=== PATIENT | male | born 1965 | race Caucasian/White ===

== ENCOUNTER 2017-05-04 07:37 | Day surgery (SDC) | payer BC ==
[~2017-05-04] VITALS: Ht 182.9 cm; Wt 96.2 kg
[2017-05-04] VITALS (10 sets, daily range): BP systolic 113–154; BP diastolic 78–98
[~2017-05-04 07:37] MED LIST: HEParin (CATH LAB) 2,000 ML IV ONE; NS IV 1000 ML 1,000 ML ONE
[2017-05-04] MEDS ORDERED: ASPI-983 PO (08:00)
[2017-05-04] MEDS ORDERED: ATOR40TA70 PO (08:00)
[2017-05-04 08:02] LABS: MEAN PLATELET VOLUME 10.2 FL (7.4-10.4); RED BLOOD COUNT 5.57 10^6/uL (4.35-5.85); RED CELL DISTRIBUTION WIDTH 12.8 % (10.0-14.5); WHITE BLOOD COUNT 8.6 10^3/uL (4.3-11.0)
[2017-05-04 08:11] LABS: PROTHROMBIN TIME PATIENT 12.6 SEC (12.2-14.7)
[2017-05-04] MEDS ORDERED: NS IV 1000 ML 1,000 ML IV SCH ×2 (08:15→10:53)
[2017-05-04 08:20] LABS: ALANINE AMINOTRANSFERASE 54 U/L (0-55); ALBUMIN 4.3 GM/DL (3.2-4.5); ANION GAP 10 MMOL/L (5-14); ASPARTATE AMINO TRANSFERASE 28 U/L (5-34); BILIRUBIN,TOTAL 0.8 MG/DL (0.1-1.0); BLOOD UREA NITROGEN 18 MG/DL (7-18); BUN/CREATININE RATIO 16; CALCIUM 8.9 MG/DL (8.5-10.1); CARBON DIOXIDE 20 MMOL/L (21-32); CHLORIDE 112 MMOL/L (98-107); CHOLESTEROL 122 MG/DL (< 200); CREATININE SERUM 1.11 MG/DL (0.60-1.30); DIRECT LDL 64 MG/DL (1-129); GFR ESTIMATED > 60; GLUCOSE 109 MG/DL (70-105); POTASSIUM 4.2 MMOL/L (3.6-5.0); SODIUM 142 MMOL/L (135-145); TOTAL PROTEIN 7.2 GM/DL (6.4-8.2); TRIGLYCERIDES 94 MG/DL (<150); VLDL CHOLESTEROL 19 MG/DL (5-40)
[2017-05-04] MEDS ORDERED: MIDAZOLAM 5 MG/5 ML (VERSED) VIAL ONE ×2 (09:00→10:40)
[2017-05-04] MEDS ORDERED: fentaNYL INJECTION 100 MCG/2 ML AMP ONE ×2 (09:00→10:41)
[2017-05-04] MEDS ORDERED: diphenhydrAMINE 50 MG/ML INJ (BENADRYL) ONE ×2 (09:01→10:41)
--- NOTE | 2017-05-04 09:46 | Cardiac Procedure Note-CS/ASA ---
Pre-Procedure Note Pre-Op Procedure Note H&P Reviewed The H&P was reviewed, patient examined and no changes noted. Date H&P Reviewed: May 04, 2017 Time H&P Reviewed: 09:46 Conscious Sedation Pre-Proced Time Reviewed: 09:46 ASA Class: 2 Airway Mallampati Classification: (eek appropriate class) I. II. III, IV Lungs Heart ASA score ASA 1: a normal healthy patient ASA 2: a patient with a mild systemic disease (mid diabetes, controlled hypertension, obesity ASA 3: a patient with a severe systemic disease that limits activity (angina , COPD, prior Myocardial infarction) ASA 4: a patient with an incapacitating disease that is a constant threat to life (CHF, renal failure) ASA 5: a moribund patient not expected to survive 24 hrs. (ruptured aneurysm) ASA 6: a declared brain patient whose organs are being harvested. For emergent operations, add the letter E after the classification Grade 2 Sedation Plan: Analgesia, Amnesia, Plan communicated to team members, Discussed options with patient/fam, Discussed risks with patient/fam Note The patient is an appropriate candidate to undergo the planned procedure, sedation, and anesthesia. The patient immediately re-assessed prior to indication. ELIOT ROTH MD FACP FAC CCDS May 04, 2017 09:46
--- NOTE | 2017-05-04 10:55 | Discharge Inst-Cardiology ---
Discharge Inst-Cardiac Discharge Medications Continued Medications: Aspirin (Aspirin EC) 81 Mg Tablet.dr 81 MG PO DAILY, TAB Atorvastatin Calcium (Atorvastatin Calcium) 40 Mg Tablet 40 MG PO DAILY, TAB Orders-Post D/C & Referrals Pneu Vac Indicated: Yes ELIOT ROTH MD FACP FACC CCDS May 04, 2017 10:55
--- NOTE | 2017-05-04 10:56 | Discharge Inst-Post CATH ---
Discharge Inst-CATH Post Cardiac Cath D/C Inst Follow Up/Plan F/u with Dr Bailey in 2 weeks CARDIAC CATH DISCHARGE INSTRUCTIONS *Hold Metformin for 48 hours post heart cath. ACTIVITY * Go Home directly and rest. * Limit activity of the leg (or wrist if it was used) for 7 days including aerobics, swimming, jogging, bicycling, etc. * Restrict stair-climbing for 7 days if possible, if not, climb up with your non -cath leg, then bring together on the same step. * Avoid lifting, pushing, pulling or excessive movement of the affected extremity for 7 days. * Customary sexual activity may be resumed after 2 days-use caution not to use a position that strains or causes pain to the affected extremity. * No driving for 24 hours. * NO SMOKING. * Avoid straining for bowel movements for 7 days. * Gentle walking on level ground is allowed. * Returning to work will depend on the type of procedure and the results. Your doctor will discuss this with you. CALL YOUR DOCTOR FOR ANY OF THE FOLLOWING: *If bleeding from the puncture site occurs- Apply gentle pressure to site with clean cloth and call your doctor or EMS. * If a knot or lump forms under the skin, increases in size, or causes pain. * If bruising appears to be worsening or moving further down your leg instead of disappearing. * Temperature above 101 F. CARE OF YOUR GROIN INCISION; * Bruising or purple discoloration of the skin near the puncture site is common. * You may shower only, no bathtub bathing for 5 days. Be careful to avoid slipping as your leg may feel stiff. * If a closure device was used on your femoral artery, please see the attached guide regarding care of the device and your leg. * REMOVE the dressing from your groin the next day after your procedure in the shower. CARE OF YOUR WRIST INCISION; * Bruising or purple discoloration of the skin near the puncture site is common. * You may shower. * DO NOT submerge wrist. * Remove dressing in 24 hours. ELIOT BAILEY MD [facility] CCDS May 04, 2017 10:56
[2017-05-04] MEDS ORDERED: PATIENT MAY USE OWN MEDS, ALL PO SCH (11:00)
--- NOTE | 2017-05-09 12:43 | CARDIAC CATHETERIZATION ---
DATE OF SERVICE: 05/04/2017 The patient is a 51-year-old man with a history of coronary artery disease and coronary artery bypass surgery who has been experiencing symptoms suggestive of recurrent angina. Cardiac catheterization was carried out today after having obtained an informed consent, PROCEDURE: He was brought to the cardiac catheterization laboratory in a fasting state. Right groin was prepared and draped in the usual sterile fashion. Lidocaine 1% local anesthesia. Modified Seldinger technique was used to advance a 5-Serbian sheath into the right femoral artery. A 5-Serbian JL3.5 catheter was used for left coronary angiography. A 5-Serbian JR4 catheter was used for right coronary angiography. A 5-Serbian JR4 catheter and a 5-Serbian ELLEN catheter were used for angiography of the left internal mammary artery graft to the left anterior descending artery. A 5-Serbian pigtail catheter was used for left heart catheterization and left ventricular angiography. He tolerated the procedure well. At the end of the procedure, following sheath removal, a Mynx was used to achieve hemostasis. Angiography of the right femoral artery with catheter out through the sheath at the beginning of the procedure. HEMODYNAMICS: Left ventricular end-diastolic pressure following coronary angiography was 7 mmHg. There was no significant pressure gradient on pullback across the aortic valve. Ascending aortic pressure was 111/68 with a mean of 86 mmHg. CORONARY ANGIOGRAPHY: Left main coronary artery is free of significant disease. Left anterior descending artery has 99-100% proximal stenosis. Left circumflex artery does not exhibit significant disease. Right coronary artery is dominant and does not exhibit significant disease. GRAFT ANGIOGRAPHY: Left internal mammary artery graft to left anterior descending artery is widely patent and free of significant disease. There is good runoff distally and also proximal to the insertion of the graft. LEFT VENTRICULAR ANGIOGRAPHY: Left ventricular angiography was carried out in the right anterior oblique projection. Global left ventricular systolic function is at the lower limit of normal. Left ventricular ejection fraction approximately 50%. There appears to be mild apical hypokinesis. CONCLUSIONS: 1. Coronary artery disease primarily consisting of 99 to 100% proximal stenosis, left anterior descending artery. The distal left anterior descending artery is protected with a widely patent left internal mammary artery graft. 2. The rest of the coronary vessels do not exhibit significant obstructive disease. 3. Normal left ventricular end-diastolic pressure. 4. Global left ventricular systolic function at the lower limit of normal with an ejection fraction of 50% and with mild apical hypokinesis. DISCUSSION AND RECOMMENDATIONS: Based on results of the study, it appears appropriate to continue a conservative approach. Risk factor modification was reviewed. Outpatient followup is advised. Job ID: [id number] DocumentID: [id number] Dictated Date: 05/04/2017 10:47:04 Clerk Stenographer Date: 05/09/2017 12:42:51 Dictated By: ELIOT ROTH MD, MA, FACP, FACC,
== END 2017-05-04 14:15 | disposition home or self-care (01) ==
LOC: CATH 07:37 → SURG 10:57 → ENPENDDIS 14:00 → CATH 14:15
PROVIDERS: ATTEND Nurse Practitioner Family
DX: R07.89 Other chest pain (principal); I25.10 Atherosclerotic heart disease of native coronary artery without angina pectoris; E78.5 Hyperlipidemia, unspecified; R73.09 Other abnormal glucose; Z95.1 Presence of aortocoronary bypass graft; Z79.899 Other long term (current) drug therapy
CPT/HCPCS: 36415; 36430; 80053; 80061; 85027; 85610; 85730; 87081; 93459

== ENCOUNTER → 2017-05-08 | Outpatient (CLI) | payer BC ==
[~2017-05-08] MED LIST changes: +ASPI-983 PO; +ATOR40TA70 PO; -HEParin (CATH LAB) 2,000 ML IV ONE; -NS IV 1000 ML 1,000 ML ONE
--- NOTE | 2017-05-08 10:44 | Diagnostic Imaging Report ---
PROCEDURE: CT chest without contrast. TECHNIQUE: Multiple contiguous axial images were obtained through the chest without the use of intravenous contrast. Indication: Followup pulmonary nodules. Comparison: 05/06/2016, 10/23/2015, and 07/01/2015. Discussion: 4 mm nodule within the right upper lobe, 6 mm nodule within the right middle lobe, and 3 mm nodule within the right lower lobe appear stable. No new nodule identified. No abnormal focal consolidation. Partially calcified lymph nodes within the right hilum are stable, benign. Per the most recent revised Fleischner criteria, findings are considered benign and no further followup is required. Median sternotomy is again noted. Stable normal heart size. No mediastinal, hilar, or axillary pathologically enlarged lymph nodes identified. The thoracic aorta is normal in caliber and configuration. Fatty infiltration of the liver is noted. The visualized upper abdomen is unremarkable otherwise. No acute osseous abnormality identified. Impression: 1. Benign-appearing nodules within the right lung appear stable. No further followup is required per the most recent Fleischner criteria. 2. Fatty infiltration of the liver. FLEISCHNER CRITERIA, 2017: Solid nodules: Solitary nodule size: <6 mm * low risk patients: no follow-up needed * high risk patients: optional CT at 12 months Solitary nodule size: 6-8 mm * low risk patients: follow-up at 6-12 months, then consider further follow-up at 18-24 months * high risk patients: initial follow-up CT at 6-12 months and then at 18-24 months if no change Solitary nodule size: >8 mm * either low or high risk patients * consider follow-up CT at 3 months, and/or CT-PET, and/or biopsy Multiple nodules size: <6 mm * low risk patients: no routine follow-up * high risk patients: optional CT at 12 months Multiple nodules size: 6-8 mm * low risk patients: follow-up at 3-6 months, then consider further follow-up at 18-24 months * high risk patients: follow-up at 3-6 months, then at 18-24 months if no change Multiple nodules size: >8 mm * low risk patients: follow-up at 3-6 months, then consider further follow-up at 18-24 months * high risk patients: follow-up at 3-6 months, then at 18-24 months if no change Note: newly detected indeterminate nodule in persons 35 years of age or older. * low risk patients: minimal or absent history of smoking and or other known risk factors * high risk patients: history of smoking or of other known risk factors (e.g. first degree relative with lung cancer, or exposure to asbestos, radon, uranium) * if a nodule up to 8 mm is partly solid or is ground glass further follow-up is required after 24 months to exclude possible slow growing adenocarcinoma (YOGESH) Dictated by: Dictated on workstation # [id number]
== END ==
LOC: RAD 10:08
PROVIDERS: ATTEND Internal Medicine Critical Care Medicine
DX: R91.8 Other nonspecific abnormal finding of lung field (principal); K76.0 Fatty (change of) liver, not elsewhere classified; R06.00 Dyspnea, unspecified
CPT/HCPCS: 71250

== ENCOUNTER 2019-07-02 10:21 | Emergency (ER) | payer BC, OTHER ==
[~2019-07-02] VITALS: Ht 185 cm; Wt 90.0 kg
[2019-07-02 10:37] LABS: BASOPHILS # (AUTO) 0.1 10^3/uL (0.0-0.1); BASOPHILS % (AUTO) 1 % (0-10); EOSINOPHILS # (AUTO) 0.2 10^3/uL (0.0-0.3); EOSINOPHILS % (AUTO) 2 % (0-10); HEMATOCRIT 50 % (40-54); HEMOGLOBIN 17.4 G/DL (13.3-17.7); LYMPHOCYTES # (AUTO) 1.8 X 10^3 (1.0-4.0); LYMPHOCYTES % (AUTO) 19 % (12-44); MEAN CORPUSCULAR HEMOGLOBIN 30 PG (25-34); MEAN CORPUSCULAR HGB CONC 35 G/DL (32-36); MEAN CORPUSCULAR VOLUME 86 FL (80-99); MEAN PLATELET VOLUME 9.7 FL (7.4-10.4); MONOCYTES # (AUTO) 0.9 X 10^3 (0.0-1.0); MONOCYTES % (AUTO) 10 % (0-12); NEUTROPHILS # (AUTO) 6.6 X 10^3 (1.8-7.8); NEUTROPHILS % (AUTO) 69 % (42-75); PLATELET COUNT 232 10^3/uL (130-400); RED CELL DISTRIBUTION WIDTH 12.8 % (10.0-14.5); WHITE BLOOD COUNT 9.6 10^3/uL (4.3-11.0)
[2019-07-02] MEDS ORDERED: NS 100 ML (IVPB) BAG IV ONE (10:45)
[2019-07-02] MEDS ORDERED: IOHEXOL 350 MG/ML 100 ML (OMNIPAQUE 350) VIAL IV ONE (10:45)
[2019-07-02] MEDS ORDERED: HOLD METFORMIN - RECEIVED CONTRAST 20 ML VIAL IV SCH (10:45)
[2019-07-02 10:46] LABS: FIBRIN DEGRADATION PRODUCTS <= 0.27 UG/ML (0.00-0.49); INR 0.9 (0.8-1.4); PARTIAL THROMBOPLASTIN TIME 28 SEC (24-35); PROTHROMBIN TIME PATIENT 12.5 SEC (12.2-14.7)
--- NOTE | 2019-07-02 10:47 | NUR ---
BACK FROM CT.
[2019-07-02 10:49] LABS: ALANINE AMINOTRANSFERASE 55 U/L (0-55); ALBUMIN 4.9 GM/DL (3.2-4.5); ALKALINE PHOSPHATASE 115 U/L (40-136); BILIRUBIN,TOTAL 0.5 MG/DL (0.1-1.0); BUN/CREATININE RATIO 16; CARBON DIOXIDE 25 MMOL/L (21-32); CHLORIDE 110 MMOL/L (98-107); CREATININE SERUM 1.35 MG/DL (0.60-1.30); GFR ESTIMATED 55; GLUCOSE 106 MG/DL (70-105); POTASSIUM 4.3 MMOL/L (3.6-5.0); SODIUM 143 MMOL/L (135-145); TOTAL PROTEIN 8.1 GM/DL (6.4-8.2)
--- NOTE | 2019-07-02 10:53 | Diagnostic Imaging Report ---
INDICATION: Stroke symptoms Noncontrast brain CT is performed. There are no extra-axial fluid collections. No intracranial hemorrhage. No intracranial mass or mass effect. No midline shift. The ventricles are normal in size and position. There are no focal parenchymal abnormalities in the brain. Calvarial windows were unremarkable. There is questionable hyperdensity in one of the M2 branches in the left sylvian fissure, vessel occlusion is not excluded. Correlate with clinical symptoms, consider CTA if warranted. IMPRESSION: No acute intracranial hemorrhage or focal intraparenchymal abnormality. Questionable area of hyperdensity in the left sylvian fissure, a left M2 branch occlusion is not excluded. Correlate with clinical symptoms, consider CTA if clinically warranted. Dictated by: Dictated on workstation # [id number]
--- NOTE | 2019-07-02 11:15 | Diagnostic Imaging Report ---
PROCEDURE: CT angiography of the head and CT angiography of the neck with and without contrast. TECHNIQUE: Contiguous noncontrast images were obtained from the skull base through the vertex. After intravenous contrast administration, helical CT angiography of the neck was performed. Source data was reformatted into 3D MIP projections. Delayed post contrast acquisition was also obtained. Auto Exposure Controls were utilized during the CT exam to meet ALARA standards for radiation dose reduction. INDICATION: Facial droop and stroke. FINDINGS: Delayed postcontrast images are without evidence of abnormal enhancing lesion. CT angiographic portion of the exam demonstrates there to be a three-vessel branching pattern of the aortic arch. Both common carotid arteries are widely patent. Carotid bifurcations are unremarkable. Internal carotid arteries show some calcified plaque at the carotid siphons. There is normal perfusion to the middle cerebral artery territories bilaterally. No filling defects within M1 or M2 segments is seen. Bilateral anterior cerebral as well as bilateral posterior cerebral arteries appear to be patent. No large branch occlusion is seen. The vertebral arteries are codominant. No stenosis is seen. Note is made of an area of heterogeneous enhancement in the region of the left oral pharynx. This area measures 1.7 cm transverse x 1.3 cm AP x approximately 2.0 cm cephalocaudal. This is in the region of the left tonsillar pillar. No cervical lymphadenopathy is seen. IMPRESSION: 1. Unremarkable CT angiogram of the head and neck. There is no evidence of large branch occlusion or intracranial thromboembolism. 2. Questionable mass in the region of the left tonsillar pillar. A dedicated MRI soft tissue neck with and without contrast would be recommended for better characterization on a nonemergent basis. Results were discussed with Dr. Tejeda prior to this dictation. Dictated by: Dictated on workstation # [id number]
[2019-07-02 11:24] LABS: BILIRUBIN,URINE NEGATIVE (NEGATIVE); CLARITY,URINE CLEAR; COLOR,URINE YELLOW; GLUCOSE, URINE (UA) NEGATIVE (NEGATIVE); KETONES,URINE NEGATIVE (NEGATIVE); LEUKOCYTE ESTERASE ,URINE NEGATIVE (NEGATIVE); NITRITE,URINE NEGATIVE (NEGATIVE); PH,URINE 6.5 (5-9); PROTEIN,URINE 1+ (NEGATIVE); UROBILINOGEN,URINE NORMAL (NORMAL)
[2019-07-02 11:31] LABS: BACTERIA,URINE NEGATIVE /HPF; SQUAMOUS EPITHELIAL CELL,UR RARE /HPF
[2019-07-02] MEDS ORDERED: ACYCLOVIR 400 MG TABLET (ZOVIRAX) PO ONE (11:45)
[2019-07-02] MEDS ORDERED: cefTRIAXone FOR IV USE 1,000 MG in WATER (STERILE) FOR INJECTION 10 ML IV ONE (11:45)
[2019-07-02] MEDS ORDERED: predniSONE 20 MG TAB PO ONE (11:45)
[2019-07-02] MEDS ORDERED: AMOX500C2 PO (11:48)
[2019-07-02] MEDS ORDERED: PRD20T PO (11:48)
[2019-07-02] MEDS ORDERED: ACYC400T PO (11:48)
--- NOTE | 2019-07-02 11:51 | ED Neurological Problem ---
General Chief Complaint: Neuro-Stroke Like Symptoms Stated Complaint: STROKE LIKE SYMPTOMS Nursing Triage Note: ARRIVED VIA WC VIA POV. 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 PT STATES HE HAS HAD SOME DIZZINESS FOR THE LAST TWO WEEKS. Nursing Sepsis Screen: No Definite Risk Source: patient Exam Limitations: no limitations History of Present Illness Date Seen by Provider: Jul 02, 2019 Time Seen by Provider: 10:21 Initial Comments This 53-year-old gentleman presents to the emergency room by private vehicle with complaints of left-sided facial droop. Last known well time was approximately one hour prior to arrival. He noticed a tendency to drool and numbness and weakness of the left face while driving. He thought he was having a stroke and decided to come directly to the emergency room. He briefly had some tingling in his left arm but denies any extremity weakness. He denies use of anticoagulants. Fingerstick blood sugar was 44 but was later discovered to be a diluted specimen. He is alert and oriented on arrival. NIH stroke score is 2 for the facial weakness. Stroke activation was paged upon arrival. Patient also complains of some congestion, sore throat and dizziness over the past 1-2 weeks. Allergies and Home Medications Allergies Coded Allergies: No Known Drug Allergies (Unverified , 08/04/15) Home Medications Acyclovir 400 Mg Tablet, 400 MG PO 5XD Prescribed by: DARINEL JOY on 07/02/19 1148 Amoxicillin 500 Mg Capsule, 1,000 MG PO BID Prescribed by: DARINEL JOY on 07/02/19 1148 Aspirin 81 Mg Tablet.dr, 81 MG PO DAILY, (Reported) Atorvastatin Calcium 40 Mg Tablet, 40 MG PO DAILY, (Reported) Prednisone 20 Mg Tab, 60 MG PO DAILY Start morning of 07/03/19 Prescribed by: DARINEL JOY on 07/02/19 1148 Patient Home Medication List Home Medication List Reviewed: Yes Review of Systems Review of Systems Constitutional: no symptoms reported Eyes: No Symptoms Reported Ears, Nose, Mouth, Throat: see HPI Respiratory: no symptoms reported Cardiovascular: no symptoms reported Gastrointestinal: no symptoms reported Genitourinary: no symptoms reported Musculoskeletal: no symptoms reported Skin: no symptoms reported Psychiatric/Neurological: See HPI Endocrine: No Symptoms Reported Hematologic/Lymphatic: No Symptoms Reported Past Hjtpisc-Vaxwsj-Gwvipp Hx Past Med/Social Hx: Reviewed Nursing Past Med/Soc Hx Patient Social History Recent Foreign Travel: No Contact w/Someone Who Travel: No Recent Infectious Disease Expo: No Immunizations Up To Date Tetanus Booster (TDap): Less than 5yrs PED Vaccines UTD: Yes Date of Influenza Vaccine: Jul 21, 2015 Past Medical History Surgeries: Yes (OPEN HEART) CABG Respiratory: No Cardiac: Yes (OPEN HEART) Coronary Artery Disease Neurological: No Reproductive Disorders: No Gastrointestinal: No Musculoskeletal: No Endocrine: No HEENT: No Cancer: No Psychosocial: No Integumentary: No Blood Disorders: No Adverse Reaction/Blood Tranf: No Family Medical History Cardiovascular disease 19 MOTHER, Onset:60 years & older Myocardial infarction 19 FATHER, Onset:45 Physical Exam Vital Signs Vital Signs - First Documented 07/02/19 10:21 Temp 37.0 Pulse 71 Resp 16 B/P (MAP) 138/103 (115) Pulse Ox 96 O2 Delivery Room Air Capillary Refill : Less Than 3 Seconds Height, Weight, BMI Height: 6'0.00" Weight: 212lbs. 0.0oz. 96.680981vv; 26.00 BMI Method: General Appearance: WD/WN, no apparent distress HEENT: PERRL/EOMI, other (left tonsillar edema and erythema with patchy white spots in the crypts and again ulcer superiorly) Neck: non-tender, full range of motion, supple, normal inspection Respiratory: lungs clear, normal breath sounds, no respiratory distress, no accessory muscle use Cardiovascular: regular rate, rhythm, no edema, no murmur Gastrointestinal: non tender, soft Extremities: normal inspection, no pedal edema Neurologic/Psychiatric: alert, normal mood/affect, oriented x 3 Crainal Nerves: normal hearing, normal speech, PERRL, other (left-sided facial droop involving the mouth, cheek, and eyelid. There appears to be some early vomit of the forehead as well.) Motor/Sensory: no sensory deficit, no pronator drift Skin: normal color, warm/dry Stroke NIH Stroke Scale Assessment Level of Consciousness: 0=Alert (0), Level of Consciousness-Questions: 0=Answers both month/age (0), LOC Commands: 0=Performs both tasks (0), Visual Raya: 0=No visual loss (0), Facial Movement (Facial Paresis): 2=Partial paralysis (2), Motor Function-Arms Right: 0=No drift (0), Motor Function-Arms Left: 0=No drift (0), Motor Function-Legs Right: 0=No drift (0), Motor Function-Legs Left: 0=No drift (0), Limb Ataxia: 0=Absent (0), Sensory: 0=Normal:no loss (0), Best Language: 0=No aphasia (0), Dysarthria: 0=Normal (0), Extinction & Inattention: 0=No abnormality (0), Total: 2 Progress/Results/Core Measures Results/Orders Lab Results Laboratory Tests Test 07/02/19 10:23 07/02/19 10:31 07/02/19 11:15 07/02/19 11:30 Range/Units White Blood Count 9.6 4.3-11.0 10^3/uL Red Blood Count 5.80 4.35-5.85 10^6/uL Hemoglobin 17.4 13.3-17.7 G/DL Hematocrit 50 40-54 % Mean Corpuscular Volume 86 80-99 FL Mean Corpuscular Hemoglobin 30 25-34 PG Mean Corpuscular Hemoglobin Concent 35 32-36 G/DL Red Cell Distribution Width 12.8 10.0-14.5 % Platelet Count 232 130-400 10^3/uL Mean Platelet Volume 9.7 7.4-10.4 FL Neutrophils (%) (Auto) 69 42-75 % Lymphocytes (%) (Auto) 19 12-44 % Monocytes (%) (Auto) 10 0-12 % Eosinophils (%) (Auto) 2 0-10 % Basophils (%) (Auto) 1 0-10 % Neutrophils # (Auto) 6.6 1.8-7.8 X 10^3 Lymphocytes # (Auto) 1.8 1.0-4.0 X 10^3 Monocytes # (Auto) 0.9 0.0-1.0 X 10^3 Eosinophils # (Auto) 0.2 0.0-0.3 10^3/uL Basophils # (Auto) 0.1 0.0-0.1 10^3/uL Prothrombin Time 12.5 12.2-14.7 SEC INR Comment 0.9 0.8-1.4 Activated Partial Thromboplast Time 28 24-35 SEC D-Dimer <= 0.27 0.00-0.49 UG/ML Sodium Level 143 135-145 MMOL/L Potassium Level 4.3 3.6-5.0 MMOL/L Chloride Level 110 H 98-107 MMOL/L Carbon Dioxide Level 25 21-32 MMOL/L Anion Gap 8 5-14 MMOL/L Blood Urea Nitrogen 22 H 7-18 MG/DL Creatinine 1.35 H 0.60-1.30 MG/DL Estimat Glomerular Filtration Rate 55 BUN/Creatinine Ratio 16 Glucose Level 106 H 70-105 MG/DL Calcium Level 10.0 8.5-10.1 MG/DL Corrected Calcium 8.5-10.1 MG/DL Total Bilirubin 0.5 0.1-1.0 MG/DL Aspartate Amino Transf (AST/SGOT) 30 5-34 U/L Alanine Aminotransferase (ALT/SGPT) 55 0-55 U/L Alkaline Phosphatase 115 40-136 U/L Troponin I < 0.028 <0.028 NG/ML Total Protein 8.1 6.4-8.2 GM/DL Albumin 4.9 H 3.2-4.5 GM/DL Glucometer 44 *L 70-110 MG/DL Urine Color YELLOW Urine Clarity CLEAR Urine pH 6.5 5-9 Urine Specific [place] 1.010 L 1.016-1.022 Urine Protein 1+ H NEGATIVE Urine Glucose (UA) NEGATIVE NEGATIVE Urine Ketones NEGATIVE NEGATIVE Urine Nitrite NEGATIVE NEGATIVE Urine Bilirubin NEGATIVE NEGATIVE Urine Urobilinogen NORMAL NORMAL MG/DL Urine Leukocyte Esterase NEGATIVE NEGATIVE Urine RBC (Auto) NEGATIVE NEGATIVE Urine RBC NONE /HPF Urine WBC NONE /HPF Urine Squamous Epithelial Cells RARE /HPF Urine Crystals NONE /LPF Urine Bacteria NEGATIVE /HPF Urine Casts NONE /LPF Urine Mucus NEGATIVE /LPF Urine Culture Indicated NO Group A Streptococcus Screen NEGATIVE NEGATIVE My Orders Orders - DARINEL TEJEDA MD Cbc With Automated Diff (07/02/19 10:30) Protime With Inr (07/02/19 10:30) Partial Thromboplastin Time (07/02/19 10:30) Comprehensive Metabolic Panel (07/02/19 10:30) Fibrin Degradation Products (07/02/19 10:30) Troponin I (07/02/19 10:30) Ua Culture If Indicated (07/02/19 10:30) Chest 1 View, Ap/Pa Only (07/02/19 10:30) Ekg Tracing (07/02/19 10:30) Accucheck Stat ONCE (07/02/19 10:30) Ed Iv/Invasive Line Start (07/02/19 10:30) Ed Iv/Invasive Line Start (07/02/19 10:30) Vital Signs Stroke Patient Q15M (07/02/19 10:30) Ct Head Wo-R/O Stroke (07/02/19 10:30) O2 (07/02/19 10:30) Intake & Output 06,14,22 (07/02/19 10:30) Monitor-Rhythm Ecg Trace Only (07/02/19 10:30) Dysphagia Screening Tool (07/02/19 10:30) Post Thrombolytic Adminstratio (07/02/19 10:30) Ct Angio Head/Neck (07/02/19 10:30) Iohexol Injection (Omnipaque 350 Mg/Ml 1 (07/02/19 10:45) Received Contrast (Hold Metformin- Contr (07/02/19 10:45) Ns (Ivpb) (Sodium Chloride 0.9% Ivpb Bag (07/02/19 10:45) Ceftriaxone For Iv Use (Rocephin For I (07/02/19 11:45) Prednisone Tablet (Deltasone Tablet) (07/02/19 11:45) Acyclovir Capsule/Tablet (Zovirax Caps (07/02/19 11:45) Rapid Strep A Screen (07/02/19 11:52) Medications Given in ED Current Medications Medications Dose Ordered Sig/Ruddy Route Start Time Stop Time Status Last Admin Dose Admin Acyclovir 400 mg ONCE ONCE PO 07/02/19 11:45 07/02/19 11:46 DC 07/02/19 12:17 400 MG Ceftriaxone Sodium 1000 mg/ Sterile Water 10 ml @ 200 mls/hr ONCE ONCE IV 07/02/19 11:45 07/02/19 11:47 DC 07/02/19 12:18 200 MLS/HR Iohexol 75 ml ONCE ONCE IV 07/02/19 10:45 07/02/19 10:46 DC 07/02/19 10:41 75 ML Prednisone 60 mg ONCE ONCE PO 07/02/19 11:45 07/02/19 11:46 DC 07/02/19 12:17 60 MG Sodium Chloride 100 ml ONCE ONCE IV 07/02/19 10:45 07/02/19 10:46 DC 07/02/19 10:42 80 ML Vital Signs/I&O 07/02/19 07/02/19 10:21 12:35 Temp 37.0 37.0 Pulse 71 69 Resp 16 16 B/P (MAP) 138/103 (115) 116/88 (115) Pulse Ox 96 94 O2 Delivery Room Air Room Air Blood Pressure Mean: 115 FSBG Bedside Testing Finger Stick Blood Glucose: 44 Progress Progress Note : Progress Note Although there appeared to be some subtle left forehead weakness to suggest Paz's palsy, this finding was not obvious enough to rule out ischemic stroke. Stroke activation was paged. Patient was taken to CT. No acute findings or present to account for patient's symptoms. Workup was otherwise unremarkable. Fingerstick blood sugar of 44 was found to be on a diluted sample. Blood sugar on blood draw was normal. CT angiogram of the head and neck was performed due to the complaint of dizziness associated with these neurologic findings. There is an incidental finding of possible inflammatory changes around the left tonsil. On exam this correlated with erythema, exudate, an ulcerative lesion of the left tonsil. For this reason patient was given Rocephin. Patient's left forehead weakness seemed to progress throughout the course of his ER stay making Paz's palsy a more plausible explanation for his symptoms. Case was discussed with Dr. Shannon, stroke neurologist at [facility]. He agrees that the workup, exam, and history is strongly suggestive of Paz's palsy. Patient was treated accordingly with prednisone and acyclovir. See discharge instructions. Initial ECG Impression Date: Jul 02, 2019 Initial ECG Impression Time: 10:51 Initial ECG Rate: 65 Initial ECG Rhythm: Normal Sinus Comment Sinus rhythm with no ST elevation or depression. Automated read states nonspecific intraventricular conduction delay. Left LVH by automated read. Diagnostic Imaging Diagonstic Imaging: CT Plain Films/CT/US/NM/MRI: head Comments CT head viewed by me. Discussed with the radiologist and report reviewed. See report below: NAME: JOHN CHARLTON [facility] REC#: [id number] PT STATUS: [facility] ER : 1965 PHYSICIAN: DARINEL TEJEDA MD ADMIT DATE: 07/02/19/ER Signed Date of Exam: 07/02/19 CT HEAD WO-R/O STROKE INDICATION: Stroke symptoms Noncontrast brain CT is performed. There are no extra-axial fluid collections. No intracranial hemorrhage. No intracranial mass or mass effect. No midline shift. The ventricles are normal in size and position. There are no focal parenchymal abnormalities in the brain. Calvarial windows were unremarkable. There is questionable hyperdensity in one of the M2 branches in the left sylvian fissure, vessel occlusion is not excluded. Correlate with clinical symptoms, consider CTA if warranted. IMPRESSION: No acute intracranial hemorrhage or focal intraparenchymal abnormality. Questionable area of hyperdensity in the left sylvian fissure, a left M2 branch occlusion is not excluded. Correlate with clinical symptoms, consider CTA if clinically warranted. Dictated by: Dictated on workstation # [id number] Dict: 07/02/19 1043 Trans: 07/02/19 1523 Interpreted by: ROGER DE LEON MD Electronically signed by: ROGER DE LEON MD 07/02/19 1523 Diagonstic Imaging: Xray Plain Films/CT/US/NM/MRI: chest Comments NAME: JOHN CHARLTON [facility] REC#: [id number] PT STATUS: [facility] ER : 1965 PHYSICIAN: DARINEL TEJEDA MD ADMIT DATE: 07/02/19/ER Signed Date of Exam: 07/02/19 CHEST 1 VIEW, AP/PA ONLY Indication: Left-sided facial drooping and tingling. Findings: The lungs are clear. The heart size upper limits but stable from prior. Sternal wires midline. No failure, effusion or pneumothorax. Impression: No acute appearing abnormality. Dictated by: Dictated on workstation # [id number] Dict: 07/02/19 1140 Trans: 07/02/19 165 Interpreted by: ANGELICA PEREZ Electronically signed by: ANGELICA PEREZ 07/02/19 1655 Diagonstic Imaging: CT Plain Films/CT/US/NM/MRI: other (angiogram head and neck) Comments CT angiogram head and neck viewed by me. Discussed with the radiologist and report reviewed. See report below: NAME: JOHN CHARLTON [facility] REC#: [id number] PT STATUS: DEP ER : 1965 PHYSICIAN: DARINEL TEJEDA MD ADMIT DATE: 07/02/19/ER Signed Date of Exam: 07/02/19 CT ANGIO HEAD/NECK PROCEDURE: CT angiography of the head and CT angiography of the neck with and without contrast. TECHNIQUE: Contiguous noncontrast images were obtained from the skull base through the vertex. After intravenous contrast administration, helical CT angiography of the neck was performed. Source data was reformatted into 3D MIP projections. Delayed post contrast acquisition was also obtained. Auto Exposure Controls were utilized during the CT exam to meet ALARA standards for radiation dose reduction. INDICATION: Facial droop and stroke. FINDINGS: Delayed postcontrast images are without evidence of abnormal enhancing lesion. CT angiographic portion of the exam demonstrates there to be a three-vessel branching pattern of the aortic arch. Both common carotid arteries are widely patent. Carotid bifurcations are unremarkable. Internal carotid arteries show some calcified plaque at the carotid siphons. There is normal perfusion to the middle cerebral artery territories bilaterally. No filling defects within M1 or M2 segments is seen. Bilateral anterior cerebral as well as bilateral posterior cerebral arteries appear to be patent. No large branch occlusion is seen. The vertebral arteries are codominant. No stenosis is seen. Note is made of an area of heterogeneous enhancement in the region of the left oral pharynx. This area measures 1.7 cm transverse x 1.3 cm AP x approximately 2.0 cm cephalocaudal. This is in the region of the left tonsillar pillar. No cervical lymphadenopathy is seen. IMPRESSION: 1. Unremarkable CT angiogram of the head and neck. There is no evidence of large branch occlusion or intracranial thromboembolism. 2. Questionable mass in the region of the left tonsillar pillar. A dedicated MRI soft tissue neck with and without contrast would be recommended for better characterization on a nonemergent basis. Results were discussed with Dr. Tejeda prior to this dictation. Dictated by: Dictated on workstation # [id number] Dict: 07/02/19 1049 Trans: 07/02/19 1552 Interpreted by: ETHAN VALLADARES MD Electronically signed by: ETHAN VALLADARES MD 07/02/19 1552 Departure Impression Primary Impression: Paz's palsy Additional Impression: Tonsillitis Disposition: 01 HOME, SELF-CARE Condition: Improved Departure-Patient Inst. Decision time for Depature: 11:48 Referrals: CYNTHIA FERRARI MD (PCP/Family) Primary Care Physician Patient Instructions: Paz's Palsy Add. Discharge Instructions: Protect your eye as long as you're eyelid is weak. Use sunglasses when in a jermaine environment. Use protective eyewear in [place], dirty, or windy environments. Tape your eye shut at night if it does not naturally close well. You may need to get artificial tears to help moisten your eye as well. Complete the prednisone steroid as prescribed. Take your next dose tomorrow morning, July 03. Take with food or milk to avoid stomach upset. Take early in the day to avoid sleep disturbance. Complete antibiotics as prescribed. Please have your primary care provider examine your tonsils again after antibiotics are complete. Return to the emergency room if you're having worsening or new symptoms. All discharge instructions reviewed with patient and/or family. Voiced understanding. Scripts Amoxicillin (Amoxicillin) 500 Mg Capsule 1000 MG PO BID, #28 CAP 0 Refills Prov: DARINEL TEJEDA MD 07/02/19 Prednisone (Prednisone) 20 Mg Tab 60 MG PO DAILY, #18 TAB 0 Refills Start morning of 07/03/19 Prov: DARINEL TEJEDA MD 07/02/19 Acyclovir (Acyclovir) 400 Mg Tablet 400 MG PO 5XD, #35 TAB Prov: DARNIEL TEJEDA MD 07/02/19 DARINEL TEJEDA MD Jul 02, 2019 11:51
--- NOTE | 2019-07-02 11:55 | Diagnostic Imaging Report ---
Indication: Left-sided facial drooping and tingling. Findings: The lungs are clear. The heart size upper limits but stable from prior. Sternal wires midline. No failure, effusion or pneumothorax. Impression: No acute appearing abnormality. Dictated by: Dictated on workstation # [id number]
[2019-07-02 12:35] VITALS: BP 116/88
== END 2019-07-02 12:35 | disposition home or self-care (01) ==
LOC: ER 10:21 → EDUNIT# 10:24 → ER 12:35
DX: G51.0 Bell's palsy (principal); J03.90 Acute tonsillitis, unspecified; I25.10 Atherosclerotic heart disease of native coronary artery without angina pectoris; Z79.82 Long term (current) use of aspirin; Z95.1 Presence of aortocoronary bypass graft; Z82.49 Family history of ischemic heart disease and other diseases of the circulatory system
CPT/HCPCS: 36415; 70450; 70496; 70498; 71045; 80053; 81000; 82962; 84484; 85025; 85379; 85610; 85730; 87430; 93005; 93041; 96374

== ENCOUNTER 2022-11-15 09:43 | Day surgery (SDC) | payer OTHER ==
[2022-11-15] VITALS (11 sets, daily range): BP systolic 98–129; BP diastolic 69–94
[~2022-11-15] VITALS: Ht 185.4 cm; Wt 96.9 kg
[~2022-11-15 09:43] MED LIST changes: +ACYC400T21 PO; +AMOX500C2 PO; +ASPI-1238 PO; -ASPI-983 PO; +PRD20T PO
[2022-11-15] MEDS ORDERED: LIDOCAINE 1% INJ 20 ML VIAL ONE (09:47)
[2022-11-15] MEDS ORDERED: NS IV 1000 ML 1,000 ML ONE (09:47)
[2022-11-15] MEDS ORDERED: HEParin (CATH LAB) 2,000 ML IV ONE (09:47)
[2022-11-15] MEDS ORDERED: NS IV 1000 ML 1,000 ML IV SCH ×2 (10:00→12:00)
[2022-11-15] MEDS ORDERED: COQ10 PO (10:02)
[2022-11-15] MEDS ORDERED: PRAV20TA3 PO (10:02)
[2022-11-15] MEDS ORDERED: LISI1TAB48 PO (10:02)
[2022-11-15 10:07] LABS: HEMATOCRIT 52 % (40-54); HEMOGLOBIN 18.3 g/dL (13.3-17.7); MEAN CORPUSCULAR HEMOGLOBIN 31 pg (25-34); MEAN CORPUSCULAR HGB CONC 35 g/dL (32-36); MEAN CORPUSCULAR VOLUME 88 fL (80-99); PLATELET COUNT 212 10^3/uL (130-400); WHITE BLOOD COUNT 8.7 10^3/uL (4.3-11.0)
[2022-11-15 10:15] LABS: CHLORIDE 104 MMOL/L (98-107); POTASSIUM 4.1 MMOL/L (3.6-5.0); SODIUM 138 MMOL/L (135-145)
[2022-11-15 10:16] LABS: ALBUMIN 4.7 GM/DL (3.2-4.5)
[2022-11-15 10:17] LABS: CALCIUM 9.8 MG/DL (8.5-10.1); TRIGLYCERIDES 97 MG/DL (<150); VLDL CHOLESTEROL 19 MG/DL (5-40)
[2022-11-15 10:18] LABS: GLUCOSE 105 MG/DL (70-105)
[2022-11-15 10:19] LABS: CARBON DIOXIDE 26 MMOL/L (21-32)
[2022-11-15 10:20] LABS: BILIRUBIN,TOTAL 0.7 MG/DL (0.1-1.0)
[2022-11-15 10:21] LABS: INR 0.9 (0.8-1.4); PROTHROMBIN TIME PATIENT 12.8 SEC (12.2-14.7)
[2022-11-15 10:22] LABS: ALKALINE PHOSPHATASE 93 U/L (40-136); CREATININE SERUM 1.17 MG/DL (0.60-1.30); GFR ESTIMATED 72
[2022-11-15 10:23] LABS: BUN/CREATININE RATIO 21; CHOLESTEROL 164 MG/DL (< 200)
[2022-11-15 10:24] LABS: HDL CHOLESTEROL 53 MG/DL (40-60)
[2022-11-15 10:25] LABS: ALANINE AMINOTRANSFERASE 85 U/L (0-55)
[2022-11-15] MEDS ORDERED: fentaNYL INJ 100 MCG/2 ML AMP ONE (11:05)
[2022-11-15] MEDS ORDERED: MIDAZOLAM 5 MG/5 ML (VERSED) VIAL ONE (11:05)
--- NOTE | 2022-11-15 11:26 | Cardiac Procedure Note-CS/ASA ---
Pre-Procedure Note Pre-Op Procedure Note Date of Available H&P: Nov 09, 2022 Date H&P Reviewed: Nov 15, 2022 Time H&P Reviewed: 11:25 History & Physical: H&P Reviewed, No changes noted Conscious Sedation Pre-Proced ASA Score 3 For ASA 3 and 4: Consider anesthesia and medical clearance. Also, for patients with a history of failed moderate sedation consider anesthesia. Airway Lungs Heart ASA score ASA 1: a normal healthy patient ASA 2: a patient with a mild systemic disease (mid diabetes, controlled hypertension, obesity ASA 3: a patient with a severe systemic disease that limits activity (angina, COPD, prior Myocardial infarction) ASA 4: a patient with an incapacitating disease that is a constant threat to life (CHF, renal failure) ASA 5: a moribund patient not expected to survive 24 hrs. (ruptured aneurysm) ASA 6: a declared brain- patient whose organs are being harvested. For emergent operations, add the letter E after the classification Mallampati Classification Grade 2 Sedation Plan Analgesia, Amnesia, Plan communicated to team members The patient is an appropriate candidate to undergo the planned procedure, sedation, and anesthesia. The patient immediately re-assessed prior to indication. ELIOT ROTH MD FACP FAC [facility]S Nov 15, 2022 11:26
[2022-11-15] MEDS ORDERED: HEParin 1000 UNIT/ML (10ML VIAL) FOR BOLUS ONE (11:43)
[2022-11-15] MEDS ORDERED: PATIENT MAY USE OWN MEDS, ALL PO SCH (12:00)
--- NOTE | 2022-11-15 12:03 | Discharge Inst-Post CATH ---
Discharge Inst-CATH/EP Post Cardiac Cath/EP D/C Inst Follow Up/Plan F/u with Dr Bailey in 4 weeks ACTIVITY * Go Home directly and rest. * Limit activity of the leg (or wrist if it was used) for 7 days including aerobics, swimming, jogging, bicycling, etc. * Restrict stair-climbing for 7 days if possible, if not, climb up with your n on-cath leg, then bring together on the same step. * Avoid lifting, pushing, pulling or excessive movement of the affected ex tremity for 7 days. * Customary sexual activity may be resumed after 2 days-use caution not to use a position that strains or causes pain to the affected extremity. * No driving for 24 hours. * NO SMOKING. * Avoid straining for bowel movements for 7 days. * Gentle walking on level ground is allowed. * Returning to work will depend on the type of procedure and the results. Your doctor will discuss this with you. CALL YOUR DOCTOR FOR ANY OF THE FOLLOWING: *If bleeding from the puncture site occurs- Apply gentle pressure to site with clean cloth and call your doctor or EMS. * If a knot or lump forms under the skin, increases in size, or causes pain. * If bruising appears to be worsening or moving further down your leg instead of disappearing. * Temperature above 101 F. CARE OF YOUR GROIN INCISION; * Bruising or purple discoloration of the skin near the puncture site is common. * You may shower only, no bathtub bathing for 5 days. Be careful to avoid slipping as your leg may feel stiff. * If a closure device was used on your femoral artery, please see the attached guide regarding care of the device and your leg. * Leave dressing on FOR 24 hours. CARE OF YOUR WRIST INCISION; * Bruising or purple discoloration of the skin near the puncture site is common. * You may shower. * DO NOT submerge wrist. * Leave dressing on FOR 24 hours. ELIOT BAILEY MD [facility] Nov 15, 2022 12:03
--- NOTE | 2022-11-15 12:03 | Discharge Inst-Cardiology ---
Discharge Inst-Cardiac Discharge Medications Continued Medications: Aspirin (Aspirin EC) 81 Mg Tablet.dr 81 MG PO DAILY, TAB [Coq10] () 300 MG PO DAILY Lisinopril/Hydrochlorothiazide (Lisinopril-Hctz 20-25 mg Tab) 20 Mg-25 Mg Tablet 1 EACH PO DAILY, TAB Pravastatin Sodium (Pravastatin Sodium) 20 Mg Tablet 20 MG PO DAILY, TAB ELIOT ROTH MD [facility] CCDS Nov 15, 2022 12:02
--- NOTE | 2022-11-15 16:01 | CARDIAC CATHETERIZATION ---
DATE OF SERVICE: 11/15/2022 INDICATION: The patient is a 56-year-old gentleman with a history of recurrent symptoms that are suggestive of angina. Cardiac catheterization was carried out today after having obtained an informed consent. DESCRIPTION OF PROCEDURE: The patient was brought to the cardiac catheterization in a fasting state. Right groin was prepared and draped in the usual sterile fashion. A 1% lidocaine was used for local anesthesia. Modified Seldinger technique was used to advance a 5-[place] sheath into the right femoral artery, 5-[place] JR4 catheter was used for left coronary angiography, 5-[place] JR4 catheter was used for right coronary angiography, 5-[place] pigtail catheter was used for left heart catheterization and left ventricular angiography. Subsequently, IFR measurement was carried out in the left circumflex artery and is described below. We also performed selective angiography of the left internal mammary artery graft using a 5-[place] ELLEN catheter. IFR MEASUREMENT IN THE LEFT CIRCUMFLEX: The left circumflex artery was exhibiting 40-50% mid vessel stenosis. Because of the patient's chest discomfort, we proceeded with IFR measurement. We exchanged the sheath over a wire for a 6-[place] sheath. We used a 6-[place] JR4 guide catheter to engage the left coronary artery. We advanced a pressure wire across the lesion. A 5000 units of intravenous heparin were given for advancement of the wire. The IFR was measured at 0.99, indicating that the lesion was not hemodynamically significant. The wire was then removed. The integrity of the vessel was confirmed with repeat angiography. The catheter was then removed. Angiography of the right femoral artery had been carried out through the sheath at the beginning of the procedure. At the end of the procedure, Mynx was used to achieve hemostasis following sheath removal. HEMODYNAMICS: Left ventricular end diastolic pressure following coronary angiography was 5 mmHg. There is no significant pressure gradient on pullback across the aortic valve. Ascending aortic pressure was 104/68 with a mean of 72 mmHg. CORONARY ANGIOGRAPHY: Left main coronary artery is free of significant disease. Left anterior descending artery is occluded in its proximal portion and the distal left anterior descending artery is protected by a widely patent left internal mammary artery graft. Left circumflex artery exhibits 40-50% mid vessel stenosis, and IFR across the lesion is 0.99, indicating that the lesion is not hemodynamically significant. Right coronary artery is dominant and does not exhibit significant disease. ANGIOGRAPHY OF THE LEFT INTERNAL MAMMARY ARTERY GRAFT AND LEFT ANTERIOR DESCENDING: This graft is widely patent and does not exhibit significant disease. The graft close to the mid left circumflex artery good distal flow. LEFT VENTRICULAR ANGIOGRAPHY: Left ventricular angiography was carried out in the right anterior oblique projection. Global left ventricular systolic function is normal. Left ventricular ejection fraction is approximately 55%. CONCLUSION: 1. Coronary artery disease, primarily consisting of proximal occlusion of the left anterior descending and the distal left anterior descending artery is protected by a widely patent left internal mammary artery graft. Left circumflex artery has 40-50% mid vessel stenosis that is hemodynamically insignificant (based on IFR). Right coronary artery is dominant and does not exhibit significant disease. 2. Normal left ventricular end-diastolic pressure. 3. Well preserved global left ventricular systolic function with an ejection fraction approximately 55%. Job ID: [id number] DocumentID: [id number] Dictated Date: 11/15/2022 12:17:55 Edge Trimming Machine Operator Date: 11/15/2022 15:59:00 Dictated By: ELIOT ROTH MD; LING; FACP; FACC;
== END 2022-11-15 15:35 | disposition home or self-care (01) ==
LOC: CATH 09:43 → SDC 12:25 → CATH 15:35
PROVIDERS: ATTEND Internal Medicine Cardiovascular Disease
DX: I25.10 Atherosclerotic heart disease of native coronary artery without angina pectoris (principal); G51.0 Bell's palsy; I65.23 Occlusion and stenosis of bilateral carotid arteries; E78.2 Mixed hyperlipidemia; Z79.82 Long term (current) use of aspirin
CPT/HCPCS: 36415; 80053; 80061; 85027; 85610; 85730; 87081; 93005; 93458

== ENCOUNTER → 2022-12-15 | Outpatient (CLI) | payer OTHER ==
[~2022-12-15] MED LIST changes: +COQ10 PO; +LISI1TAB48 PO; +PRAV20TA3 PO
--- NOTE | 2022-12-15 18:07 | Diagnostic Imaging Report ---
INDICATION: Acute onset pain and swelling FINDINGS: There is at least moderate sized joint effusion seen best in the lateral view. 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 IMPRESSION: Joint effusion and degenerative disease Dictated by: Dictated on workstation # [id number]
== END ==
LOC: RAD FS 16:42
PROVIDERS: ATTEND Nurse Practitioner Family
DX: M17.12 Unilateral primary osteoarthritis, left knee (principal); M25.462 Effusion, left knee
CPT/HCPCS: 73562

== ENCOUNTER 2023-07-19 05:35 | Outpatient (CLI) | payer OTHER ==
[~2023-07-19] VITALS: Ht 185.4 cm; Wt 94.8 kg
[2023-07-20] MEDS ORDERED: UBID300C2 PO (11:41)
== END 2023-07-20 12:46 | disposition home or self-care (01) ==
LOC: PREOP 05:35
PROVIDERS: ATTEND Surgery
DX: Z01.818 Encounter for other preprocedural examination (principal)

== ENCOUNTER 2023-07-31 07:26 | Day surgery (SDC) | payer OTHER ==
[2023-07-31] VITALS (7 sets, daily range): BP systolic 75–127; BP diastolic 50–88
[~2023-07-31] VITALS: Ht 185.4 cm; Wt 94.8 kg
[~2023-07-31 07:26] MED LIST changes: +UBID300C2 PO
[2023-07-31] MEDS ORDERED: LACTATED RINGERS 1,000 ML 1,000 ML IV STA (07:33)
[2023-07-31] MEDS ORDERED: MIDAZOLAM INJ 2 MG/2 ML VIAL ONE (08:37)
--- NOTE | 2023-07-31 09:27 | Progress Note-Post Operative ---
Post-Operative Progess Note Surgeon (s)/Barrel Builder (s) Surgeon YOVANA GALLEGOS DO Barrel Builder: none Pre-Operative Diagnosis screening Post-Operative Diagnosis Polyp Int hemorrhoids Procedure & Operative Findings Date of Procedure 07/31/23 Procedure Performed/Findings Colonoscopy with hot biopsy PROCEDURE NOTE: After informed consent was obtained, the patient was brought to the endoscopy suite, placed in bed in left lateral decubitus position. He was administered IV sedation by the CORPORATE DIRECTOR OF HUMAN RESOURCES who then monitored his vitals the entire time, heart rate, blood pressure and pulse ox and the scope was inserted, pushed all the way to about 130 cm and pushed into the cecum, took a picture of appendiceal orifice and noted the ileocecal valve. Then slowly withdrew the scope insufflating to look circumferentially at the anderson starting in the cecum and up the ascending colon. In the ascending colon I found a small flat polyp, elected to do a hot biopsy. Continue up to the hepatic flexure, then down the transverse colon to the splenic flexure, into the descending colon and down into the sigmoid and then into the rectal vault. I retroflexed the scope and took a picture of the internal hemorrhoids. The patient tolerated the procedure. He was recovered in endoscopy suite. Recommended for repeat colonoscopy in 5 years. Anesthesia Type IV sedation by CORPORATE DIRECTOR OF HUMAN RESOURCES Estimated Blood Loss Estimated blood loss (mL): scant Specimens/Packing Specimens Removed Asc colon polyp YOVANA GALLEGOS DO Jul 31, 2023 09:27
--- NOTE | 2023-07-31 09:28 | Endoscopy Discharge Instruct ---
Endo Procedure/Findings Findings 1.: Polyp 2.: Internal Hemorrhoids Discharge Instructions - Activity: You might feel a little sleepy until tomorrow. This is due to the medicine you received to relax you. Until tomorrow, you should: NOT drive a car, operate machinery or power tools. NOT drink any alcoholic beverages. NOT make any important decisions or sign importortant papers. Do not return to work until tomorrow, unless otherwise instructed. Resume previous activities tomorrow. Diet: Start by taking liquids. If you tolerate liquids, advance to solid food. 1.: Colonscopy in 5 years Notify Physician - If you experience excessive bleeding, unusual abdominal pain, fever, or chest pain, contact your doctor immediately. Follow-Up: Other Follow up in my office in one week YOVANA GALLEGOS DO Jul 31, 2023 09:28
--- NOTE | 2023-07-31 13:30 | Anesthesia-General Post-Op ---
MAC Patient Condition Mental Status/LOC: Same as Preop Cardiovascular: Satisfactory Nausea/Vomiting: Absent Respiratory: Satisfactory Pain: Controlled Complications: Absent Post Op Complications Complications None Follow Up Care/Instructions Patient Instructions None needed. Anesthesiology Discharge Order Discharge Order Patient is doing well, no complaints, stable vital signs, no apparent adverse anesthesia problems. No complications reported per nursing. AKANKSHA DICKEY CRNA Jul 31, 2023 13:30
== END 2023-07-31 10:15 | disposition home or self-care (01) ==
LOC: ENDO 07:26
PROVIDERS: ATTEND Surgery
DX: Z12.11 Encounter for screening for malignant neoplasm of colon (principal); D12.2 Benign neoplasm of ascending colon; K64.8 Other hemorrhoids; Z95.1 Presence of aortocoronary bypass graft
CPT/HCPCS: 88305